=== PATIENT | male | born 1965 | race Caucasian/White ===

== ENCOUNTER 2016-12-05 08:24 | Emergency (ER) | payer BC ==
[~2016-12-05] VITALS: Ht 190.5 cm; Wt 146.2 kg
[~2016-12-05 08:24] MED LIST: ACETAMINOPHEN-1 EAC1; ALLOPURINOL300 MG PO; Ambien PO; CELEBREX200 MG PO; CEPHALEXIN500 MG; COLCRYS 0.6 MG; COLCRYS0.6 MG PO; COUMADIN1 MG PO; COUMADIN10 MG PO; COUMADIN7.5 MG PO; DILAUDID2 MG PO; DURICEF1 GM PO; Duricef PO; INDOMETHACIN 25 MG; LISINOPRIL10 MG PO; Levaquin PO; PERCOCET 5/31 TABLET PO; PREDNISONE20 MG PO; Percocet 5/325,Endoc PO; Rocephin IV; VICODIN,LORT1 TABLET PO; Vicodin ES 7.5/750 PO; ZOFRAN4 MG PO; Zyloprim PO
[2016-12-05 10:38] LABS: MCH 29.1 PG (29.0-34.0); MCHC 32.9 G/DL (30.0-36.0); MCV 88.4 FL (86-99); PLATELET COUNT 255 K/uL (156-360); RBC DIS.WIDTH-CV 12.4 % (11.8-14.6); RBC DIS.WIDTH-SD 40.6 % (39-53); RED BLOOD COUNT 5.09 M/uL (4.00-5.50)
[2016-12-05 10:48] LABS: CHLORIDE 106 mEq/L (99-109); POTASSIUM 4.4 mEq/L (3.7-5.4); SODIUM 141 mEq/L (136-147)
[2016-12-05 10:50] LABS: GLUCOSE 95 mg/dL (70-99)
[2016-12-05 10:51] LABS: ANION GAP 9 MEQ/L (2-14)
[2016-12-05 10:54] LABS: GFR ESTIMATE (CALCULATED) > 59 mL/min/
[2016-12-05 10:55] LABS: UREA NITROGEN (BUN) 18 mg/dL (9-23)
[2016-12-05] MEDS ORDERED: AUGMENTIN875 MG PO (11:07)
[2016-12-05] MEDS ORDERED: TYLENOL WITH C1 EACH PO (11:07)
[2016-12-05 11:29] VITALS: BP 125/89
== END 2016-12-05 11:30 | disposition home or self-care (01) ==
LOC: EME 08:24
PROVIDERS: Emergency Medicine
DX: M71.522 Other bursitis, not elsewhere classified, left elbow (principal); I10 Essential (primary) hypertension; Z79.01 Long term (current) use of anticoagulants
CPT/HCPCS: 73080; 80048; 85027; 99281; 99283